=== PATIENT | male | born 1935 ===

== ENCOUNTER 2018-04-02 10:20 | Day surgery (SDC) | payer MEDICARE, MEDICAID ==
[2018-03-28 11:37] VITALS: BMI 25.7
[2018-04-02] MEDS ORDERED: cefTRIAXone (Rocephin) 1 gm Inj ONE (12:21)
[2018-04-02] MEDS ORDERED: Lactated Ringer's 1,000 ML IV ONE ×2 (12:50→14:40)
[2018-04-02] MEDS ORDERED: Propofol 10 mg/ml Inj (20 ML) ONE (12:54)
[2018-04-02] MEDS ORDERED: cefTRIAXone (Rocephin) 1 gm Inj IM ONE (13:00)
[2018-04-02] MEDS ORDERED: Lidocaine 1% MPF (30 ml) Inj INJ ONE (13:25)
[2018-04-02] MEDS ORDERED: HYDROmorphone 0.5 mg/0.5 ml ISec IVP PRN (13:46)
[2018-04-02 14:30] VITALS: RESP 18
[2018-04-02 16:22] VITALS: BP 149/94; PULSE 76; TEMP 98.2; O2SAT 96
--- NOTE | 2018-04-02 18:19 | CARD ---
APPROVED REPORT Date of service: 04/02/2018 <Conclusion> Normal sinus rhythm Normal ECG
--- NOTE | 2018-04-13 13:31 | OP ---
Copied To: Charlotte Givens MD Attending MD: Charlotte Givens MD PROCEDURE DATE: 04/02/2018 PREOPERATIVE DIAGNOSIS: Left hydrocele. POSTOPERATIVE DIAGNOSIS: Left hydrocele. PROCEDURE PERFORMED: Left hydrocelectomy. DESCRIPTION OF PROCEDURE: The patient was placed on the operating room table in the supine position. The area of the groin was draped and prepped in the sterile manner. was given general anesthesia. At this time, an incision was made over the left hemiscrotum. The hydrocele was delivered up on to the operative field and sized into the hydrocele sac and a clear whitish fluid was discharged from this area. Once it was completely drained, I then using cautery resected the hydrocele sac and once this was done, I then used running 4-0 chromic suture to oversaw the entire area. By this time, there was no significant bleeding noted. I replaced the back into the scrotal cavity. There were some residual subcutaneous bleeders that were cauterized. Did not see the need to leave any [place] drain at this time, so the closure was with two-layer chromic suture, first was the subcu and then was the skin margins. Once this was done, a Tegaderm dressing was placed over the wound site and then the patient was taken from the operating room in good condition. Charlotte Givens MD
== END 2018-04-02 16:30 | disposition home or self-care (01) ==
LOC: H.OPSURG 10:20
PROVIDERS: ATTEND Urology
DX: N43.3 Hydrocele, unspecified (principal); R31.0 Gross hematuria
CPT/HCPCS: 55040; 88304; 88305; 93005; J0696; J2001; J2405; J2704; J3010; J7120